=== PATIENT | female | born 1960 | race Caucasian/White ===

== ENCOUNTER → 2016-06-02 | Outpatient (CLI) | payer BC ==
--- NOTE | 2016-06-05 09:59 | MM ---
Reason for exam: screening (asymptomatic). Last mammogram was performed 1 year ago. History: Took hormonal contraceptives for 24 years. Took progesterone for 2 months beginning at age 49. Physical Findings: A clinical breast exam by your physician is recommended on an annual basis and results should be correlated with mammographic findings. MG Screening Mammo w CAD Bilateral CC and MLO view(s) were taken. Prior study comparison: May 24, 2015, bilateral MG screening mammo w CAD. May 20, 2014, bilateral MG screening mammo w CAD. The breast tissue is heterogeneously dense. This may lower the sensitivity of mammography. No significant changes when compared with prior studies. ASSESSMENT: Negative, BI-RAD 1 RECOMMENDATION: Routine screening mammogram of both breasts in 1 year.
== END | disposition home or self-care (01) ==
LOC: RADMAMWWP 16:45
PROVIDERS: ATTEND Family Medicine
DX: Z12.31 Encounter for screening mammogram for malignant neoplasm of breast (principal)

== ENCOUNTER → 2017-06-15 | Outpatient (CLI) | payer BC ==
--- NOTE | 2017-06-18 10:17 | MM ---
Reason for exam: screening (asymptomatic). Last mammogram was performed 1 year ago. History: Took hormonal contraceptives for 24 years. Took progesterone for 2 months beginning at age 49. Physical Findings: A clinical breast exam by your physician is recommended on an annual basis and results should be correlated with mammographic findings. MG Screening Mammo w CAD Bilateral CC and MLO view(s) were taken. Prior study comparison: June 02, 2016, bilateral MG screening mammo w CAD. May 24, 2015, bilateral MG screening mammo w CAD. The breast tissue is heterogeneously dense. This may lower the sensitivity of mammography. Stable benign punctate calcifications. No significant changes when compared with prior studies. ASSESSMENT: Benign, BI-RAD 2 RECOMMENDATION: Routine screening mammogram of both breasts in 1 year.
== END | disposition home or self-care (01) ==
LOC: RADMAMWWP 15:42
PROVIDERS: ATTEND Family Medicine
DX: Z12.31 Encounter for screening mammogram for malignant neoplasm of breast (principal)
CPT/HCPCS: 77067

== ENCOUNTER → 2018-06-25 | Outpatient (CLI) | payer BC ==
--- NOTE | 2018-06-27 11:09 | MM ---
Reason for exam: screening (asymptomatic). Last mammogram was performed 1 year ago. History: Patient is postmenopausal. Took hormonal contraceptives for 24 years. Took progesterone for 2 months beginning at age 49. Physical Findings: A clinical breast exam by your physician is recommended on an annual basis and results should be correlated with mammographic findings. MG 3D Screening Mammo W/Cad Bilateral CC and MLO view(s) were taken. Prior study comparison: June 15, 2017, bilateral MG screening mammo w CAD. June 02, 2016, bilateral MG screening mammo w CAD. The breast tissue is heterogeneously dense. This may lower the sensitivity of mammography. No significant changes when compared with prior studies. ASSESSMENT: Benign, BI-RAD 2 RECOMMENDATION: Routine screening mammogram of both breasts in 1 year.
== END ==
LOC: RADMAMWWP 15:46
PROVIDERS: ATTEND Family Medicine
DX: Z12.31 Encounter for screening mammogram for malignant neoplasm of breast (principal)
CPT/HCPCS: 77063; 77067

== ENCOUNTER → 2019-09-08 | Outpatient (CLI) | payer BC ==
--- NOTE | 2019-09-09 10:25 | MM ---
Reason for exam: screening (asymptomatic). Last mammogram was performed 1 year and 2 months ago. History: Patient is postmenopausal. Took hormonal contraceptives for 24 years. Taking estrogen for 1 year beginning at age 57. Taking progesterone for 1 year beginning at age 57. Physical Findings: A clinical breast exam by your physician is recommended on an annual basis and results should be correlated with mammographic findings. MG 3D Screening Mammo W/Cad Bilateral CC and MLO view(s) were taken. Prior study comparison: June 25, 2018, bilateral MG 3d screening mammo w/cad. June 15, 2017, bilateral MG screening mammo w CAD. The breast tissue is heterogeneously dense. This may lower the sensitivity of mammography. No significant changes when compared with prior studies. ASSESSMENT: Negative, BI-RAD 1 RECOMMENDATION: Routine screening mammogram of both breasts in 1 year.
== END | disposition home or self-care (01) ==
LOC: RADMAMWWP 16:14
PROVIDERS: ATTEND Family Medicine
DX: Z12.31 Encounter for screening mammogram for malignant neoplasm of breast (principal)
CPT/HCPCS: 77063; 77067

== ENCOUNTER → 2020-05-28 | Outpatient (CLI) | payer BC ==
[2020-05-28 16:24] VITALS: RESP 18
[2020-05-28 16:30] VITALS: BP 110/71; PULSE 64; TEMP 98
--- NOTE | 2020-05-28 16:34 | P.GSHP ---
History of Present Illness H&P Date: 05/28/20 Chief Complaint: felt a mass in her left breast Belkis is a 59 year old white female seen in consultation for Dr. Swanson regarding a lump in her left breast. She had a bilateral mammogram on 09-08-19 which was a benign BIRAD 1. She stated that the area of nodularity also seemed to have some tingling associated with it. She did like to drink coffee and used to drink 2 cups per day. She stopped the coffee and when she did the area of nodularity and tingling subsided. She is not feeling anything of concern at this time. She is not complaining of any nipple discharge or skin changes. No history of any trauma or infection in the breast. She's never had any surg rush in the breast. Patient does take estrogen and progesterone. She has been on estrogen for approximately 2 years. Caffeine: 2 cups of coffee/day; tea daily nicotine: none chocolate: occasional Family History: father: bone cancer Hormonal History: menarche: 13 M1, age at first : 21; breat fed: yes menopause: stopped having periods at 57 BCP: 5 years Surgical History: appy Medical History: none Social History: nicotine: stopped late alcohol: none drugs: none - Constitutional Constitutional: Denies chills, Denies fever - EENT Eyes: denies blurred vision, denies pain Ears: deny: decreased hearing, tinnitus Ears, nose, mouth and throat: Denies headache, Denies sore throat - Breasts Breasts: bilateral: as per HPI - Cardiovascular Cardiovascular: Denies chest pain, Denies shortness of breath - Respiratory Respiratory: Denies cough, Denies 7 - Gastrointestinal Gastrointestinal: Denies abdominal pain, Denies diarrhea, Denies nausea, Denies vomiting - Genitourinary (Female) Genitourinary: Denies dysuria, Denies hematuria - Menstruation Menstruation: Reports postmenopausal - Musculoskeletal Comment: muscle aches/ physical labor - Integumentary Integumentary: Denies pruritus, Denies rash - Neurological Neurological: Denies numbness, Denies weakness - Psychiatric Psychiatric: Reports anxiety - Endocrine Endocrine: Denies fatigue, Denies weight change - Hematologic/Lymphatic Comment: none - Allergic/Immunologic Allergic/Immunologic: Reports seasonal allergies Medications and Allergies Home Medications Medication Instructions Recorded Confirmed Type Calcium Carb/Magnesium Ox,Carb 1 tab PO DAILY 05/28/20 05/28/20 History [Jeff-Mag 500-250 MG Chewable] Cholecalciferol [Vitamin D3 (25 1 tab PO DAILY 05/28/20 05/28/20 History Mcg = 1000 Iu)] Cod Liver Oil 1 each PO DAILY 05/28/20 05/28/20 History Levothyroxine Sodium [Synthroid] 75 mcg PO DAILY 05/28/20 05/28/20 History Progesterone, Micronized 100 mg PO HS 05/28/20 05/28/20 History [Progesterone] estradioL [estradioL (Twice 1 patch TRANSDERM Q84H 05/28/20 05/28/20 History Weekly) 0.025 mg Patch] traZODone HCL 50 mg PO HS 05/28/20 05/28/20 History Allergies Allergy/AdvReac Type Severity Reaction Status Date / Time No Known Allergies Allergy Unverified 05/28/20 16:11 Surgical - Exam - General well developed, well nourished, no distress - Eyes normal ocular movement - ENT normal pinna, normal mucosa - Neck no masses, trachea midline - Respiratory normal respiratory effort, clear to auscultation - Cardiovascular Rhythm: regular Heart Sounds: normal: S1, S2 - Abdomen Abdomen: soft - Integumentary normal turgor - Neurologic no disoriented, no combative - Musculoskeletal normal gait, normal posture - Psychiatric oriented to time, oriented to person, oriented to place, speech is normal, memory intact Breast exam: BRA: 32B Inspection: grade 2 ptosis bilateral palpation: Right breast: Multi-positional exam fibrocystic changes, no dominant masses or nodules of concern Right axilla: No adenopathy of concern Left breast: Multiple position of exam fibrocystic changes no discrete dominant mass or nodule of concern is palpable any longer the patient herself cannot feel that that she had felt before either Left axilla: No adenopathy of concern Results Mammogram results reviewed from last mammogram, Assessment and Plan Assessment: Impression: 1. Fibrocystic breast changes/fluctuating nodularity/tingling in her breast at times 2. Resolved nodule left breast most likely related to caffeine intake 3. Caffeine intake patient recommended to use decaf 4. Patient uses estrogen and progesterone 5. Patient does not smoke Plan: 1. Patient is for bilateral mammogram Maeve, 2021 2. Lifestyle modification 3. There is nothing at this time to recommend interventional biopsy A book was given to the patient regarding fibrocystic breast changes. Most likely the area of concern that she felt was fibrocystic glandular tissue. It seems to have resolved at this time. The patient understands this and will consider lifestyle modification. Cc: Dr. Swanson Encounter 30 minutes, time spent in examination, reviewing records, and counselling.
== END ==
LOC: WWCWWP 16:00
PROVIDERS: ATTEND Surgery
DX: N60.12 Diffuse cystic mastopathy of left breast (principal); N60.11 Diffuse cystic mastopathy of right breast; Z17.0 Estrogen receptor positive status [ER+]